=== PATIENT | female | born 1985 | race Caucasian/White ===

== ENCOUNTER → 2016-07-27 | Outpatient (CLI) | payer MEDICAID | END | disposition home or self-care (01) | LOC: RADECHMAIN 12:46 | PROVIDERS: ATTEND Family Medicine | DX: R00.2 Palpitations (principal); R42 Dizziness and giddiness | CPT/HCPCS: 93270; 93271 ==

== ENCOUNTER → 2016-08-11 | Outpatient (CLI) | payer MEDICAID ==
[2016-08-11 15:15] LABS: C Reactive Protein <5.0 mg/L (<10.0)
[2016-08-11 15:32] LABS: Prolactin 7.8 ng/mL (3.0-18.6)
[2016-08-12 00:57] LABS: DHEA Sulfate 413.3 ug/dL (26.0-430.0)
== END | disposition home or self-care (01) ==
LOC: LABWHC1 14:27
PROVIDERS: ATTEND Family Medicine
DX: H10.13 Acute atopic conjunctivitis, bilateral (principal); L68.9 Hypertrichosis, unspecified
CPT/HCPCS: 36415; 82627; 82672; 84144; 84146; 85652; 86140

== ENCOUNTER → 2017-04-17 | Outpatient (CLI) | payer BC ==
[2017-04-17 10:43] LABS: Basophils % (A) 0 %; CH 30.4; CHCM 32.9; Eosinophils # (A) 0.1 k/uL (0-0.7); Eosinophils % (A) 3 %; HCT 39.9 % (34.0-46.0); HDW 2.29; HGB 13.1 gm/dL (11.4-16.0); Luc # (Auto) 0.09; Luc % (Auto) 2; Lymphocytes # (A) 1.4 k/uL (1.0-4.8); Lymphocytes % (A) 28 %; MCH 30.7 pg (25.0-35.0); Monocytes # (A) 0.3 k/uL (0-1.0); Monocytes % (A) 7 %; Neutrophils % (A) 60 %; RBC 4.28 m/uL (3.80-5.40); RDW 12.1 % (11.5-15.5); WBC 4.9 k/uL (3.8-10.6); WBC (Perox) 5.06
[2017-04-17 12:32] LABS: ALT 25 U/L (9-52); AST 22 U/L (14-36); Alkaline Phosphatase 54 U/L (38-126); Anion Gap 9 mmol/L; Blood Urea Nitrogen 10 mg/dL (7-17); Calcium 9.6 mg/dL (8.4-10.2); Carbon Dioxide 27 mmol/L (22-30); Chloride 105 mmol/L (98-107); Cholesterol 224 mg/dL (<200); Glucose 88 mg/dL (74-99); HDL Cholesterol 76 mg/dL (40-60); Non-African American GFR(MDRD) >60 (>60 ml/min/1.73 sqM); Potassium 4.6 mmol/L (3.5-5.1); Sodium 141 mmol/L (137-145); Total Bilirubin 0.5 mg/dL (0.2-1.3); Total Protein 7.4 g/dL (6.3-8.2)
[2017-04-17 12:36] LABS: Rheumatoid Factor, Qnt <9 IU/mL (<12)
[2017-04-17 16:25] LABS: ANA w/Reflex to Titer NEGATIVE (NEGATIVE)
[2017-04-17 17:08] LABS: Erythrocyte Sedimentation Rate 7 mm/hr (0-20)
== END | disposition home or self-care (01) ==
LOC: LABWHC1 09:41
PROVIDERS: ATTEND Internal Medicine
DX: H15.109 Unspecified episcleritis, unspecified eye (principal); D69.6 Thrombocytopenia, unspecified
CPT/HCPCS: 36415; 80053; 80061; 85025; 85652; 86038; 86235; 86431

== ENCOUNTER → 2017-12-22 | Outpatient (CLI) | payer BC ==
--- NOTE | 2017-12-23 04:18 | MR ---
EXAMINATION TYPE: MR knee RT wo con DATE OF EXAM: 12/22/2017 COMPARISON: NONE HISTORY: Rt knee pain with activity/exercise TECHNIQUE: Multiplanar, multisequence imaging of the right knee is performed without IV contrast. FINDINGS: The anterior and posterior cruciate ligaments are intact. There is very minimal increased signal with in the lateral meniscus without evidence of a tear. There is similar change in the medial meniscus. T here is mild knee joint effusion. The collateral ligaments appear intact. I see no bony destructive p rocess. There is no evidence of a fracture. Joint spaces are fairly normal. IMPRESSION: Mild knee joint effusion. No evidence of ligamentous tear. Minor degenerative signal changes in the m enisci without a tear.
== END | disposition home or self-care (01) ==
LOC: RADMRIMAIN 19:43
PROVIDERS: ATTEND Orthopaedic Surgery Sports Medicine
DX: M25.461 Effusion, right knee (principal); M23.306 Other meniscus derangements, unspecified meniscus, right knee

== ENCOUNTER → 2018-04-10 | Outpatient (CLI) | payer BC ==
[2018-04-10 12:35] LABS: ALT 33 U/L (9-52); AST 24 U/L (14-36); Alkaline Phosphatase 55 U/L (38-126); Anion Gap 11 mmol/L; Basophils % (A) 1 %; Blood Urea Nitrogen 10 mg/dL (7-17); Calcium 9.7 mg/dL (8.4-10.2); Carbon Dioxide 25 mmol/L (22-30); Chloride 104 mmol/L (98-107); Cholesterol 247 mg/dL (<200); Eosinophils # (A) 0.3 k/uL (0-0.7); Eosinophils % (A) 4 %; Glucose 87 mg/dL (74-99); HCT 41.8 % (34.0-46.0); HDL Cholesterol 83 mg/dL (40-60); HGB 13.7 gm/dL (11.4-16.0); LDL Cholesterol,Calculated 145 mg/dL (0-99); Lymphocytes # (A) 1.5 k/uL (1.0-4.8); Lymphocytes % (A) 22 %; MCH 30.5 pg (25.0-35.0); MCHC 32.8 g/dL (31.0-37.0); MCV 92.9 fL (80.0-100.0); Mean Platelet Volume 7.2; Monocytes # (A) 0.4 k/uL (0-1.0); Monocytes % (A) 6 %; Neutrophils # (A) 4.4 k/uL (1.3-7.7); Neutrophils % (A) 66 %; Platelet Count 163 k/uL (150-450); RDW 12.6 % (11.5-15.5); Sodium 140 mmol/L (137-145); Total Bilirubin 0.6 mg/dL (0.2-1.3); Total Protein 8.2 g/dL (6.3-8.2); Triglycerides 97 mg/dL (<150); WBC 6.6 k/uL (3.8-10.6)
[2018-04-10 12:49] LABS: T4, Free (Free Thyroxine) 0.94 ng/dL (0.78-2.19)
== END | disposition home or self-care (01) ==
LOC: LABWHC1 10:57
PROVIDERS: ATTEND Internal Medicine
DX: Z00.00 Encounter for general adult medical examination without abnormal findings (principal); E78.5 Hyperlipidemia, unspecified
CPT/HCPCS: 36415; 80053; 80061; 84439; 84443; 85025

== ENCOUNTER → 2018-10-23 | Outpatient (CLI) | payer BC ==
[2018-10-23 10:24] LABS: Basophils % (A) 1 %; Eosinophils # (A) 0.1 k/uL (0-0.7); Eosinophils % (A) 1 %; HCT 39.8 % (34.0-46.0); HGB 12.7 gm/dL (11.4-16.0); Lymphocytes # (A) 1.5 k/uL (1.0-4.8); Lymphocytes % (A) 32 %; MCV 93.6 fL (80.0-100.0); Mean Platelet Volume 7.5; Monocytes # (A) 0.3 k/uL (0-1.0); Monocytes % (A) 6 %; Neutrophils # (A) 2.7 k/uL (1.3-7.7); Neutrophils % (A) 59 %; Platelet Count 136 k/uL (150-450); RBC 4.25 m/uL (3.80-5.40); RDW 13.4 % (11.5-15.5); WBC 4.6 k/uL (3.8-10.6)
[2018-10-23 10:53] LABS: Total Eosinophil Count 46 #EOS/uL (150-300)
[2018-10-23 17:00] LABS: Egg White IgE <0.10 kU/L
[2018-10-23 17:01] LABS: Codfish IgE <0.10 kU/L
[2018-10-23 17:02] LABS: Clam IgE <0.10 kU/L; Peanut IgE <0.10 kU/L; Shrimp IgE <0.10 kU/L; Soybean IgE <0.10 kU/L
[2018-10-23 17:03] LABS: Scallop IgE <0.10 kU/L; Walnut IgE (Food) <0.10 kU/L
== END ==
LOC: LABWHC1 09:14
PROVIDERS: ATTEND Internal Medicine
DX: Z01.82 Encounter for allergy testing (principal)
CPT/HCPCS: 36415; 82785; 85008; 85025; 86003

== ENCOUNTER → 2019-08-12 | Outpatient (CLI) | payer BC | END | disposition home or self-care (01) | LOC: LABWHC1 08:32 | PROVIDERS: ATTEND Obstetrics & Gynecology Obstetrics | DX: O20.0 Threatened abortion (principal) | CPT/HCPCS: 36415; 84702; 86850; 86900; 86901 ==

== ENCOUNTER → 2019-08-14 | Outpatient (CLI) | payer BC | END | disposition home or self-care (01) | LOC: LABWHC1 08:06 | PROVIDERS: ATTEND Obstetrics & Gynecology Obstetrics | DX: O20.0 Threatened abortion (principal) | CPT/HCPCS: 36415; 84702 ==

== ENCOUNTER → 2020-12-16 | Outpatient (CLI) | payer BC ==
--- NOTE | 2020-12-16 16:00 | USB ---
EXAMINATION TYPE: US breast complete LT DATE OF EXAM: 12/16/2020 COMPARISON: NONE CLINICAL HISTORY: N64.52 Breast Discharge. Left breast bloody nipple discharge in patient Findings: Left breast ultrasound was performed including all 4 quadrants, the retroareolar region and the left axilla. A few scattered simple cysts are noted measuring up to 1.4 cm. There is extensive ductal ecta rina with multiple ducts containing internal echoes. No definite focal intraductal lesion. 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 BI-RADS 0, incomplete. Recommendation: Bilateral diagnostic mammogram is recommended for left bloody nipple discharge.
--- NOTE | 2020-12-17 08:57 | MM ---
Reason for exam: clinical finding. Baseline mammogram. History: Family history of breast cancer in mother at age 55. Took hormonal contraceptives for 8 years beginning at age 20. MG 3D Diag Mammo W/Cad KAIN Bilateral CC and MLO view(s) were taken. The breast tissue is extremely dense which could obscure a lesion on mammography. Bilateral well circumscribed asymmetries are consistent with cysts. Follow up left retroareolar ultrasound is recommended in 6-8 weeks prior to delivery for follow up ductal ectasia with debris. These results were verbally communicated with the patient and result sheet given to the patient on 12/16/20. ASSESSMENT: Probably benign, BI-RAD 3 RECOMMENDATION: Ultrasound of the left breast in 6-8 weeks, prior to delivery. Clinical followup is recommended for left bloody nipple discharge. Surgical consult could be considered, if clinically warranted. precludes MR breasts with and without contrast, but this could be considered after delivery. MTDD
== END | disposition home or self-care (01) ==
LOC: RADUSWWP 15:25
PROVIDERS: ATTEND Obstetrics & Gynecology Obstetrics
DX: N64.52 Nipple discharge (principal); N64.89 Other specified disorders of breast; Z80.3 Family history of malignant neoplasm of breast
CPT/HCPCS: 77062; 77066

== ENCOUNTER 2021-02-24 14:26 | Inpatient (IN) | payer BC ==
[2021-02-24] MEDS ORDERED: TERBUTALINE 1 MG/ML VIAL SQ PRN (14:42)
[2021-02-24] MEDS ORDERED: OXYTOCIN 10 UNIT/ML 1 ML VIAL IM PRN (14:42)
[2021-02-24] MEDS ORDERED: CARBOPROST TROMETHAMINE 250 MCG/ML 1 ML AMP IM PRN (14:42)
[2021-02-24] MEDS ORDERED: AMPICILLIN 2,000 MG in SODIUM CHLORIDE 0.9% 100 ML IVPB STA (14:42)
[2021-02-24] MEDS ORDERED: METHYLERGONOVINE 0.2 MG/ML 1 ML AMP IM PRN (14:42)
[2021-02-24] MEDS ORDERED: LIDOCAINE 0.5% (PF) 5 MG/ML (50 ML SDV) SQ PRN (14:42)
[2021-02-24 14:59] LABS: Basophils % (A) 0 %; Eosinophils % (A) 0 %; HCT 32.5 % (34.0-46.0); HGB 11.5 gm/dL (11.4-16.0); Lymphocytes % (A) 11 %; MCHC 35.4 g/dL (31.0-37.0); MCV 95.9 fL (80.0-100.0); Mean Platelet Volume 7.5; Monocytes # (A) 0.4 k/uL (0-1.0); Monocytes % (A) 4 %; Neutrophils # (A) 7.4 k/uL (1.3-7.7); Neutrophils % (A) 82 %; Platelet Count 121 k/uL (150-450); RBC 3.38 m/uL (3.80-5.40); RDW 14.2 % (11.5-15.5); WBC 9.1 k/uL (3.8-10.6)
[2021-02-24] MEDS: OXYTOCIN 30 UNITS/500 ML NS 30 UNIT in SALINE 1 500ML.BAG IV SCH ×2 (15:04→22:46)
[2021-02-24] MEDS: LACTATED RINGERS 1,000 ML IV SCH ×2 (15:04→23:20)
--- NOTE | 2021-02-24 16:24 | P.HPOB ---
History of Present Illness H&P Date: 02/24/21 Chief Complaint: IUP at 39 and 2, spontaneous rupture of membranes, prolonged This is a 35-year-old 011 that presented for routine visit with complaints of questionable leakage of fluid yesterday. On exam patient had a slow trickle vaginally. Patient was noted to be 2/50/-3 station. Vertex presentation was confirmed by ultrasound, minimal fluid was appreciated consistent with oligohydramnios. Patient has been receiving routine care which has been essentially uncomplicated. This patient has advanced maternal age. Patient has a past medical history of a anemia, asthma Patient notes good movement and occasional contractions. On bloodwork this patient has a blood type of O+, rubella status immune, B surface antigen negative, HIV negative, RPR nonreactive, group beta strep was negative. Review of Systems Constitutional: Denies chills, Denies fatigue, Denies fever Ears, nose, mouth and throat: Denies headache Cardiovascular: Reports leg edema Respiratory: Denies dyspnea Gastrointestinal: Denies constipation, Denies diarrhea, Denies nausea, Denies vomiting Genitourinary: Reports Past Medical History Past Medical History: Asthma History of Any Multi-Drug Resistant Organisms: None Reported Additional Past Surgical History / Comment(s): L Knee Arthroscopy Past Anesthesia/Blood Transfusion Reactions: No Reported Reaction Past Psychological History: No Psychological Hx Reported Smoking Status: Never smoker Past Alcohol Use History: None Reported Past Drug Use History: None Reported - Past Family History Mother Family Medical History: Cancer Additional Family Medical History / Comment(s): breast cancer Medications and Allergies Home Medications Medication Instructions Recorded Confirmed Type Albuterol Inhaler (Mhu) [Ventolin 1 - 2 puff INHALATION Q6HR PRN 03/11/15 03/12/15 History Inhaler] Loratadine [Claritin] 10 mg PO DAILY 03/11/15 03/12/15 History Montelukast [Singulair] 10 mg PO HS PRN 03/11/15 03/12/15 History Multivit with Calcium,Iron,Min 1 each PO DAILY 03/11/15 03/12/15 History [Women's Daily Multivitamin] Delcambre-3 Fatty Acids/Fish Oil [Fish 1 each PO DAILY 03/11/15 03/12/15 History Oil 1,000 mg Softgel] Omeprazole [PriLOSEC] 20 mg PO AC-BRKFST PRN 03/11/15 03/12/15 History HYDROcodone/APAP 7.5-325MG [[employer] 1 - 2 each PO Q6HR PRN #60 tab 03/12/15 Rx 7.5-325] Allergies Allergy/AdvReac Type Severity Reaction Status Date / Time aspirin Allergy Wheezing Verified 02/24/21 14:41 Latex, Natural Rubber Allergy itching, Verified 03/11/15 08:42 rash Exam Osteopathic Statement: *. No significant issues noted on an osteopathic structural exam other than those noted in the History and Physical/Consult. 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 Results Result Diagrams: 02/24/21 14:45 Abnormal Lab Results - Last 24 Hours (Table) 02/24/21 Range/Units 14:45 RBC 3.38 L (3.80-5.40) m/uL Hct 32.5 L (34.0-46.0) % Plt Count 121 L (150-450) k/uL Assessment and Plan (1) Term Current Visit: Yes Status: Acute Code(s): Z34.90 - ENCNTR FOR SUPRVSN OF NORMAL , UNSP, UNSP TRIMESTER SNOMED Code(s): 59088304 (2) SROM (spontaneous rupture of membranes) Current Visit: Yes Status: Acute Code(s): GUQ9235 - SNOMED Code(s): 869478196 (3) AMA (advanced maternal age) multigravida 35+ Current Visit: Yes Status: Acute Code(s): O09.529 - SUPERVISION OF ELDERLY MULTIGRAVIDA, UNSPECIFIED TRIMESTER SNOMED Code(s): 118440379 Plan: 35-year-old 011 at 39-2/7 weeks presents with complaints of questionable rupture of membranes yesterday morning. Patient noted random episodes of leakage since yesterday afternoon. Patient is known group B strep negative. Given length of time since she initially noted leakage, IV antibiotics are begun, in addition pitocin augmentation of labor is begun is per hospital protocol. Epidural is offered once patient has noted cervical change. Patient states understanding and will consider. Anticipate spontaneous vaginal delivery later this evening.
[2021-02-24] MEDS ORDERED: SODIUM CHLORIDE 0.9% 100 ML BAG ONE (18:50)
[2021-02-24] MEDS ORDERED: ROPIVACAINE 5MG/ML 20ML VIAL ONE (18:50)
[2021-02-24] MEDS ORDERED: fentaNYL (PF) 50 MCG/ML 5 ML AMP ONE (18:50)
[2021-02-24] MEDS: AMPICILLIN 1,000 MG in SODIUM CHLORIDE 0.9% 50 ML IVPB SCH (19:08)
[2021-02-24] MEDS ORDERED: IBUPROFEN 600 MG TAB PO PRN (22:43)
[2021-02-24] MEDS ORDERED: diphenhydrAMINE 50 MG/ML 1 ML VIAL IVP PRN ×2 (22:43)
[2021-02-24] MEDS ORDERED: HYDROcodone/APAP 5-325MG 1 EACH TAB PO PRN (22:43)
[2021-02-24] MEDS ORDERED: diphenhydrAMINE 25 MG CAP PO PRN (22:43)
[2021-02-24] MEDS ORDERED: LANOLIN CREAM 5 GM TUBE TOPICAL PRN (22:43)
[2021-02-24] MEDS ORDERED: SIMETHICONE 80 MG CHEWABLE PO PRN (22:43)
[2021-02-24] MEDS ORDERED: HYDROCORTISONE 2.5% RECTAL CREAM 30 GM TUBE RECTAL PRN (22:43)
[2021-02-24] MEDS ORDERED: BENZOCAINE/MENTHOL SPRAY 1 GM/SPRAY AEROSOL TOPICAL PRN (22:43)
[2021-02-24] MEDS ORDERED: diphenhydrAMINE 50 MG CAP PO PRN (22:43)
[2021-02-24] MEDS ORDERED: ZOLPIDEM 5 MG TAB PO PRN (22:43)
[2021-02-24] MEDS ORDERED: OXYTOCIN 30 UNITS/500 ML NS 30 UNIT in SALINE 1 500ML.BAG IV SCH (22:45)
--- NOTE | 2021-02-24 22:49 | P.PROBDLV ---
Vaginal Delivery Note - . Vaginal Delivery Note: Is a 35-year-old 3 para 1011 at 39-2/7 weeks that presented to the office today with complaints of leakage of fluid. Patient had a slow trickle on vaginal exam, oligohydramnios noted on ultrasound. Patient was sent hospital for induction of labor secondary to rupture membranes. Patient was admitted to labor and delivery Pitocin induction of labor was begun. IV antibiotics were begun secondary to prolonged rupture of membranes Amniotomy was performed with scant fluid. Patient pressed to labor eventually becoming uncomfortable and requesting epidural placement. Epidural was placed without difficulty by the anesthesia department. Patient progressed to complete began pushing and had a normal spontaneous vaginal delivery of a viable female infant with a loose nuchal cord that was delivered through at 2215, weight of 8 lbs. 7 oz., Apgars of 8 and 9 at one and 5 minutes respect weight. A midline episiotomy was performed as a clitoral laceration was noted. The umbilical cord was doubly clamped and cut after a two-minute delay. A spontaneous cry was noted at . The placenta was then delivered spontaneously intact with a three-vessel cord being noted. On inspection the patient's vaginal vault a midline episiotomy was appreciated, no extension was noted. A left labial laceration was appreciated. In addition a right hymenal laceration was noted. The labial laceration was repaired with 4-0 chromic in a running locked fashion. Hemostasis was appreciated. The urethra was noted to be far away from the closure field with the placement of a latex free cath Abbott catheter. After closure hemostasis was appreciated. The second-degree midline episiotomy was closed with 3-0 Rapide in the usual fashion hemostasis appreciated after closure. The lateral vaginal wall/sulcal tear was repaired with a [id number] suture of 0 Vicryl, hemostasis was appreciated after repair. Uterus is noted to be slightly above the umbilicus therefore manual extraction of a good amount of clots was preformed. Estimated blood loss 200 mL for the delivery. Inspection of the laceration sites with noted hemostasis. Uterus was then noted to be firm and below the umbilicus. Catheter was noted to be drain clear yellow urine. There was removed without difficulty. All counts were noted be correct 2 at the end of delivery. Patient and infant tolerated delivery well and are resting comfortably.
[2021-02-24] MEDS: IBUPROFEN 600 MG TAB PO SCH (23:19)
[2021-02-25] MEDS: AMPICILLIN 1,000 MG in SODIUM CHLORIDE 0.9% 50 ML IVPB SCH (00:10)
[2021-02-25] MEDS: IBUPROFEN 600 MG TAB PO SCH ×3 (07:20→18:21)
[2021-02-25 08:03] LABS: Basophils % (A) 0 %; Eosinophils % (A) 0 %; HCT 27.1 % (34.0-46.0); Lymphocytes # (A) 1.2 k/uL (1.0-4.8); Lymphocytes % (A) 10 %; MCH 33.6 pg (25.0-35.0); MCHC 34.7 g/dL (31.0-37.0); Mean Platelet Volume 7.3; Monocytes # (A) 0.6 k/uL (0-1.0); Monocytes % (A) 5 %; Neutrophils # (A) 10.9 k/uL (1.3-7.7); Neutrophils % (A) 84 %; Platelet Count 120 k/uL (150-450); RBC 2.79 m/uL (3.80-5.40); RDW 14.1 % (11.5-15.5); WBC 13.1 k/uL (3.8-10.6)
[2021-02-25 08:12] LABS: HGB 9.4 gm/dL (11.4-16.0)
--- NOTE | 2021-02-25 09:19 | P.PNOBGVD ---
Subjective - Subjective Principal diagnosis: PPD 1 , prolonged rupture of membranes Interval history: This is a 35-year-old G3 now P2 012 status post normal spontaneous vaginal delivery, augmentation of labor secondary to prolonged rupture of membranes. Patient states she is feeling well this morning. She is ambulating and voiding without difficulty. She is tolerating a regular diet without nausea or vomiting. Breast feeding is going well. is in the nursery for IV antibiotic treatment. Lochia is moderate Patient reports: Reports appetite normal, Reports voiding normally, Reports pain well controlled, Reports ambulating normally : doing well (In the nursery on IV antibiotics) Objective - Latest Vital Signs Latest vital signs: Vital Signs Temp Pulse Resp BP Pulse Ox 02/25/21 04:00 98.4 F 86 16 113/66 02/25/21 00:23 97.8 F 104 H 16 123/72 02/24/21 23:53 91 16 124/60 02/24/21 23:37 87 16 118/59 02/24/21 23:22 82 16 111/58 02/24/21 23:10 88 16 123/67 02/24/21 22:52 90 16 126/58 02/24/21 22:37 122 H 16 108/57 02/24/21 14:41 98.3 F 98 18 137/85 99 Intake and Output 02/24/21 02/25/21 02/25/21 22:59 06:59 14:59 Intake Total 7.7 Output Total 200 Balance 7.7 -200 Intake: Intake, IV Titration 7.7 Amount Oxytocin 30 Units/500 ml 7.7 Ns 30 unit In Saline 1 500ml.bag @ Per Protocol IV .Q0M [facility] Rx#:[id number] Output: Estimated Blood Loss 200 Other: # Voids 1 1 - Exam Extremities: Present: normal, edema Abdomen: Present: normal appearance Uterus: Present: normal, firm - Labs Labs: Abnormal Lab Results - Last 24 Hours (Table) 02/24/21 02/25/21 Range/Units 14:45 06:43 WBC 13.1 H (3.8-10.6) k/uL RBC 3.38 L 2.79 L (3.80-5.40) m/uL Hgb 9.4 L D (11.4-16.0) gm/dL Hct 32.5 L 27.1 L (34.0-46.0) % Plt Count 121 L 120 L (150-450) k/uL Neutrophils # 10.9 H (1.3-7.7) k/uL Assessment and Plan (1) Term Current Visit: Yes Status: Acute Code(s): Z34.90 - ENCNTR FOR SUPRVSN OF NORMAL , UNSP, UNSP TRIMESTER SNOMED Code(s): 70426256 (2) SROM (spontaneous rupture of membranes) Current Visit: Yes Status: Acute Code(s): RFX0422 - SNOMED Code(s): 070169630 (3) AMA (advanced maternal age) multigravida 35+ Current Visit: Yes Status: Acute Code(s): O09.529 - SUPERVISION OF ELDERLY MULTIGRAVIDA, UNSPECIFIED TRIMESTER SNOMED Code(s): 010528494 (4) Status post normal vaginal delivery Current Visit: Yes Status: Acute Code(s): PVD6757 - SNOMED Code(s): 993746247 (5) Vaginal laceration Narrative/Plan: Labial laceration, midline episiotomy without extension Current Visit: Yes Status: Acute Code(s): S31.41XA - LACERATION W/O FOREIGN BODY OF VAGINA AND VULVA, INIT ENCNTR SNOMED Code(s): 093827785 Plan: 35-year-old G2 now P2 status post normal spontaneous vaginal delivery, aug mentation secondary to prolonged rupture of membranes. Patient is doing well. She is involuting and voiding without difficulty. She is tolerating regular diet without nausea or vomiting. She states her pain is well-controlled. She is in the nursery currently with her breast-feeding as she is on IV antibiotics. We'll continue routine care.
[2021-02-25] MEDS: SENNOSIDES-DOCUSATE SODIUM 1 EACH TAB PO SCH ×2 (09:42→19:44)
[2021-02-25] MEDS: ACETAMINOPHEN TAB 325 MG TAB PO PRN ×2 (09:43→15:45)
[2021-02-25] MEDS: PRENATAL VIT-IRON-FOLIC ACID 1 EACH CAP PO SCH (09:48)
[2021-02-25] MEDS: MULTIVITAMINS, THERA 1 EACH TAB PO SCH (09:52)
[2021-02-25] MEDS ORDERED: MONTELUKAST 10 MG TAB PO SCH (21:00)
[2021-02-26 01:05] VITALS: RESP 16
[2021-02-26] MEDS: IBUPROFEN 600 MG TAB PO SCH ×2 (03:50→06:43)
--- NOTE | 2021-02-26 09:07 | P.DS ---
Providers Date of admission: 02/24/21 14:26 Expected date of discharge: 02/26/21 Attending physician: Shayna Obrien Primary care physician: Stated None - Discharge Diagnosis(es) (1) Term Current Visit: Yes Status: Acute (2) SROM (spontaneous rupture of membranes) Current Visit: Yes Status: Acute (3) AMA (advanced maternal age) multigravida 35+ Current Visit: Yes Status: Acute (4) Status post normal vaginal delivery Current Visit: Yes Status: Acute (5) Vaginal laceration Current Visit: Yes Status: Acute Hospital Course: 35-year-old 3 para 2011 that was seen in the office at 39-2/7 weeks with complaints of question will leakage of fluid proximal 2023 hrs. prior. Ultrasound was performed oligohydramnios was noted. Slow trickle was appreciated on vaginal exam. Patient was sent hospital for induction of labor secondary to prolonged rupture of membranes. Pitocin augmentation of labor was begun. IV antibiotics were begun secondary to prolonged rupture in addition. Patient progressed through labor eventually becoming uncomfortable and requesting epidural placement. Epidural was placed without difficulty by the anesthesia department. Patient progressed to complete began pushing and had a normal spontaneous vaginal delivery of a viable female , loose nuchal cord was delivered through. Delivery time of 2215, weight of 8 lbs. 7 oz., Apgars of 8 and 9 at one and 5 minutes respectfully. The midline episiotomy was preformed secondary to clitoral laceration. Patient did sustain a left labial laceration, midline episiotomy, right sulcus laceration. All repaired in usual fashion. Hemostasis appreciated after repair. Patient's course has been uneventful. On this day #2 she is ambulating and voiding without difficulty. She is tolerating a regular diet without nausea or vomiting. Her lochia is moderate. Her infant is in the nursery on IV antibiotics, 24-hour culture was noted to be negative. She is breast-feeding Patient Condition at Discharge: Good Plan - Discharge Summary New Discharge Prescriptions: No Action Montelukast [Singulair] 10 mg PO HS PRN PRN Reason: asthma Loratadine [Claritin] 10 mg PO DAILY Albuterol Inhaler (Mhu) [Ventolin Inhaler] 1 - 2 puff INHALATION Q6HR PRN PRN Reason: asthma Pnv No.95/Ferrous Fum/Folic AC [ Multivitamin Tablet] 1 each PO DAILY Discharge Medication List Albuterol Inhaler (Mhu) [Ventolin Inhaler] 1 - 2 puff INHALATION Q6HR PRN 03/11/15 [History] Loratadine [Claritin] 10 mg PO DAILY 03/11/15 [History] Montelukast [Singulair] 10 mg PO HS PRN 03/11/15 [History] Pnv No.95/Ferrous Fum/Folic AC [ Multivitamin Tablet] 1 each PO DAILY 02/24/21 [History] Follow up Appointment(s)/Referral(s): Shayna Obrien DO [Doctor of Osteopathic Medicine] - 4 Weeks Patient Instructions/Handouts: Vaginal Delivery (GEN), Vaginal Delivery (DC) Activity/Diet/Wound Care/Special Instructions: Xmag-fvp-iyvxyio ibuprofen 600 mg as needed for pain. Patient is to be seen at 4 weeks , should she have any concerns prior to this appointment she is urged to call the office. Discharge Disposition: HOME SELF-CARE
[2021-02-26] MEDS: MULTIVITAMINS, THERA 1 EACH TAB PO SCH (11:21)
[2021-02-26] MEDS: SENNOSIDES-DOCUSATE SODIUM 1 EACH TAB PO SCH (11:21)
[2021-02-26] MEDS: PRENATAL VIT-IRON-FOLIC ACID 1 EACH CAP PO SCH (11:22)
[2021-02-26 17:29] VITALS: BP 127/65; PULSE 75; TEMP 98.2
== END 2021-02-26 18:44 | disposition home or self-care (01) | DRG 806 ==
LOC: 4FBP 14:26
PROVIDERS: ADMIT Obstetrics & Gynecology Obstetrics; ATTEND Obstetrics & Gynecology Obstetrics
PROC: 3E0R3BZ Introduction of Anesthetic Agent into Spinal Canal, Percutaneous Approach (ICD-10-PCS; principal; 2021-02-24)
PROC: 0W8NXZZ Division of Female Perineum, External Approach (ICD-10-PCS; principal; 2021-02-24)
PROC: 10E0XZZ Delivery of Products of Conception, External Approach (ICD-10-PCS; principal; 2021-02-24)
PROC: 00HU33Z Insertion of Infusion Device into Spinal Canal, Percutaneous Approach (ICD-10-PCS; principal; 2021-02-24)
PROC: 0HQ9XZZ Repair Perineum Skin, External Approach (ICD-10-PCS; principal; 2021-02-24)
DX: O42.12 Full-term premature rupture of membranes, onset of labor more than 24 hours following rupture (principal); O41.03X0 Oligohydramnios, third trimester, not applicable or unspecified; Z37.0 Single live birth; O69.81X0 Labor and delivery complicated by cord around neck, without compression, not applicable or unspecified; O99.52 Diseases of the respiratory system complicating childbirth; J45.909 Unspecified asthma, uncomplicated; Z3A.39 39 weeks gestation of pregnancy; O70.0 First degree perineal laceration during delivery; Z79.899 Other long term (current) drug therapy; Z86.2 Personal history of diseases of the blood and blood-forming organs and certain disorders involving the immune mechanism; Z88.6 Allergy status to analgesic agent; Z91.040 Latex allergy status; Z80.3 Family history of malignant neoplasm of breast
CPT/HCPCS: 85025; 86850; 86900; 86901; 88307

== ENCOUNTER → 2021-05-28 | Outpatient (CLI) | payer BC ==
[2021-05-29 00:21] LABS: Basophils # (A) 0.03 X 10*3/uL (0.00-0.10); Basophils % (A) 0.5 %; Eosinophils # (A) 0.02 X 10*3/uL (0.04-0.35); Eosinophils % (A) 0.3 %; HCT 40.7 % (37.2-46.3); HGB 12.5 g/dL (12.0-15.0); Lymphocytes # (A) 1.13 X 10*3/uL (0.90-5.00); Lymphocytes % (A) 18.3 %; MCH 28.6 pg (27.0-32.0); MCHC 30.7 g/dL (32.0-37.0); MCV 93.1 fL (80.0-97.0); Mean Platelet Volume 10.5 fL (9.5-12.2); Monocytes # (A) 0.57 X 10*3/uL (0.20-1.00); Monocytes % (A) 9.2 %; Neutrophils # (A) 4.43 X 10*3/uL (1.80-7.70); Neutrophils % (A) 71.5 %; Platelet Count 136 X 10*3/uL (140-440); RBC 4.37 X 10*6/uL (4.10-5.20); RDW 12.9 % (11.5-14.5); WBC 6.19 X 10*3/uL (4.50-10.00)
== END | disposition home or self-care (01) ==
LOC: LABWHC1 14:18
PROVIDERS: ATTEND Internal Medicine
DX: D69.6 Thrombocytopenia, unspecified (principal)
CPT/HCPCS: 36415; 85025

== ENCOUNTER → 2022-01-03 | Outpatient (CLI) | payer BC ==
[2022-01-03 10:41] LABS: Basophils # (A) 0.03 X 10*3/uL (0.00-0.10); Basophils % (A) 0.6 %; Eosinophils # (A) 0.11 X 10*3/uL (0.04-0.35); Eosinophils % (A) 2.3 %; HCT 35.9 % (37.2-46.3); HGB 11.4 g/dL (12.0-15.0); Immature Grans, Automated 0.4 %; Lymphocytes # (A) 1.36 X 10*3/uL (0.90-5.00); Lymphocytes % (A) 27.9 %; MCH 30.3 pg (27.0-32.0); MCHC 31.8 g/dL (32.0-37.0); MCV 95.5 fL (80.0-97.0); Mean Platelet Volume 11.1 fL (9.5-12.2); Monocytes % (A) 8.2 %; NRBC Per 100 WBC 0 /100 WBCS (0.0-0.0); Neutrophils # (A) 2.96 X 10*3/uL (1.80-7.70); Neutrophils % (A) 60.6 %; Platelet Count 126 X 10*3/uL (140-440); RBC 3.76 X 10*6/uL (4.10-5.20); RDW 12.2 % (11.5-14.5); WBC 4.88 X 10*3/uL (4.50-10.00)
== END | disposition home or self-care (01) ==
LOC: LABWHC1 08:13
PROVIDERS: ATTEND Internal Medicine
DX: D69.6 Thrombocytopenia, unspecified (principal)
CPT/HCPCS: 36415; 85025